=== PATIENT | male | born 1980 | race Caucasian/White ===

== ENCOUNTER 2024-05-24 10:28 | Outpatient (CLI) | payer BC, SELFPAY ==
--- NOTE | ~2024-05-24 | MR_ITS ---
MRI of the right ankle Clinical history: Pain Technique: Coronal proton-density and proton-density fat-sat images, axial proton-density and proton- density fat-sat images, and sagittal proton-density and proton-density fat-sat images were acquired. Findings: Syndesmotic ligaments are intact. Anterior and posterior talofibular ligaments, and calcane ofibular ligament are intact. Deltoid ligament is intact. Medial flexor tendons, peroneal tendons, anterior extensor tendons, and Achilles tendon are intact. T here is mild tenosynovitis of the tibialis posterior tendon sheath proximally. There is no osteochondral lesion of the talar dome. Bone marrow signals and joint spaces are intact. There is edema like signal in the sinus Tarsi. Plantar fascia intact. Impression: Edematous signal in the sinus Tarsi. Correlate for sinus Tarsi syndrome. Mild tenosynovitis of the proximal tibial is posterior tendon sheath. Reviewed, dictated and finalized at [facility]. Impression: Edematous signal in the sinus Tarsi. Correlate for sinus Tarsi syndrome. Mild tenosynovitis of the proximal tibial is posterior tendon sheath.
== END 2024-05-24 10:29 | disposition home or self-care (01) ==
PROVIDERS: PCP Family Medicine; Visit Provider Family Medicine Sports Medicine
DX: M65.861 Other synovitis and tenosynovitis, right lower leg (principal); M76.821 Posterior tibial tendinitis, right leg; M84.374A Stress fracture, right foot, initial encounter for fracture
CPT/HCPCS: 73721

== ENCOUNTER 2024-12-07 08:10 | Emergency (ER) | payer BC, SELFPAY ==
--- OUTSIDE RECORDS SUMMARY | 2024-12-07 08:13 | XMS_ITS | Clinical Summary ---
Author Organization [facility] Address [address] [place] [address] Phone Care Team Providers Care Telehealth Case Manager Name Role Phone Lukas Lucio MD Primary Care Provider [phone] [phone] Allergies No known active allergies Active Problems Problem Noted Date Diagnosed Date Anxious mood as adjustment reaction 10/28/2015 Social History Tobacco Use Types Packs/Day Years Used Date Smoking Tobacco: Former Smokeless Tobacco: Never Sexually Active Control Partners Comments Yes Oral Contraceptive Female Sex and Gender Information Value Date Recorded Sex Assigned at Not on file 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 Gender Identity Not on file Sexual Orientation Not on file Plan of Treatment Health Maintenance Due Date Last Done Comments Hepatitis C Virus (HCV) Screening 1979 TdaP Immunization 1979 Hepatitis B Immunization (3 of 3 - 19+ 3-dose series) 08/02/2000 02/29/2000, 02/01/2000 Influenza Immunization (#1) 04/21/202404/23, 05/01/2019, 06/03/2017 SARS-COV-2 Immunization ( season) 2024 09/01/2021, 11/07/2020, 10/10/2020 Colonoscopy 2024 Colorectal Cancer Screening 2024 Respiratory Syncytial Virus (RSV) Immunization (Adult) (1 - 1-dose 75+ series) 2054 Meningococcal Immunization (ACWY) Aged Out No longer eligible b ased on patient's age to complete this topic Pneumococcal Immunization Combined Aged Out No longer eligible b ased on patient's age to complete this topic Rotavirus Immunization Aged Out No lo nger eligible based on patient's age to complete this topic Insurance [facility] Care Teams Telehealth Case Manager Relationship Specialty Start Date End Date [place] [address] PCP - General Internal Medicine 10/16/15
--- OUTSIDE RECORDS SUMMARY | 2024-12-07 08:13 | XMS_ITS | Referral Summary ---
Author Organization [facility] [address] [facility] Address [address] [place] [address] Care Team Providers Care Job Service Specialist Name Role Phone Lukas Lucio MD Primary Care Provider [phone] Allergies No known active allergies Medications No known medications Active Problems Problem Noted Date Diagnosed Date Skin lesion 01/20/2022 Assessment & Plan (01/20/2022 4:39 PM CDT): Patient with atypical moles on trunk. 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 Patient reports scrotal skin lesion noted during vasectomy consultation. Recommended evaluation by dermatology, referral placed. Recommended cover sun exposed skin with SPF for prevention. Encounter for screening for lipid disorder 04/12 Assessment & Plan (04/12/2021 2:58 PM CDT): Reviewed previous labs. Will check labs today Secondary prevention Discussed focusing on limiting bad fats in the diet and using exercise as a way to improve cholesterol. Reviewed exercise recommendations Encounter for vasectomy counseling 04/12/2021 Assessment & Plan (04/12/2021 2:58 PM CDT): Given referral with urologist Dr. Ordonez. Annual physical exam 04/12/2021 Assessment & Plan (04/12/2021 2:57 PM CDT): Preventive exam; reviewed recommended preventive screenings and vaccinations. Encourage annual flu vaccine. Wear sunscreen/protective clothing when outdoors. Class 1 obesity due to exces s calories without serious comorbidity with body mass index (BMI) of 32.0 to 32.9 in adult 04/12/2021 Assessment & Plan (04/12/2021 2:58 PM CDT): Discussed healthy diet and importance of regular physical activity. Anxious mood as adjustment reaction 10/28/2015 Immunizations Immunization Administration Dates Next Due HPV, Unspecified 08/22/2016(Deferred: Patient Re fused) Hep B Vaccine 02/29/2000,02/01/2000 IPV 02/01/2000 Influenza, Quadrivalent, Spl it, Preservative Free, Intramuscular 05/20/2020,05/01/2019,04/30/2018 Influenza, Trivalent, IM (MDV) 06/03/2017 Influenza, Unspecified 04/08/2024(Deferr ed: Patient Refused),04/21/2023(Deferred: Patient Refused),05/21/2021,05/20/2020, 017,06/04/2017 Tdap 01/24/2018 Social History Tobacco Use Types Packs/Day Years Used Date Smoking Tobacco: Former Cigarettes Q uit: 10/19/2002 Smokeless Tobacco: Never Tobacco Cessation:Counseling Given: Not Answered Alcohol Use Standard Drinks/Week Comments Yes 0 (1 standard drink = 0.6 oz pur e alcohol) PHQ-2 Answer Date Recorded PHQ-2 Total Score (If total score is 3 or more points, staff should administer the PHQ-9) 0 04/08/2024 Personal Safety Answer Date Recorded Getting School Help Needed Not on file 08/27 Sex and Gender Information Value Date Recorded Sex Assigned at Not on file 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 Gender Identity Not on file Sexual Orientation Not on file Last Filed Vital Signs Vital Sign Reading Time Taken Comments Blood Pressure 121/75 05/14/2024 3:17 PM CDT Pulse 77 05/14/2024 3:17 PM CDT Temperature 36.7 C (98.1 F) 04/08/2024 3:45 PM CDT Respiratory Rate 16 04/08/2024 3:45 PM CDT Oxygen Saturation 98% 04/08/2024 3:45 PM CDT room air Inhaled Oxygen Concentration - - Weight 100.2 kg (220 lb 12.8 oz) 05/14/2024 3:17 PM CDT Height 190.5 cm (6' 3 ) 05/14/2024 3:17 PM CDT Body Mass Index 27.6 05/14/2024 3:17 PM CDT Plan of Treatment Not on file Insurance [employer] Care Teams Job Service Specialist Relationship Specialty Start Date End Date Lukas Lucio MD [address] [place] [address] PCP - General 05/11/15
--- OUTSIDE RECORDS SUMMARY | 2024-12-07 08:13 | XMS_ITS | Clinical Summary ---
Author Organization [facility] [address] [facility] Address [address] [place] [address] Care Team Providers Care Java Flex Developer Name Role Phone Lukas Lucio MD Primary Care Provider [phone] [phone] Allergies No known active allergies Medications No [...] Patient Refused),04/21/2023(Deferred: Patient Refused),05/21/2021,05/20/2020, 017,06/04/2017 Tdap 01/24/2018 Medical History Medical History Date Comments Hx Other Medical 1988 epilepsy; Comme nts: CLS 05/11/2015 - Anxiety 08/2019 Depression 08/2019 Seizures (HCC) 1990 Family History Medical History Relation Name Comments No Known Problems Brother No Known Problems Daughter Brenda Hypertension Father Kayla Hypertension; Memory loss Father Kayla Parkinsonism Father Kayla Parkinson's dis ease; Hypertension Mother Bethany Hypertension; Arthritis Other No Known Problems Son Devon Relation Name Status Comments Brother Alive Daughter Brenda Alive Father Kayla Alive Mother Bethany Alive Other Son Devon Alive Social History Tobacco Use Types Packs/Day Years [...] on file 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 Gender Identity Not on file Sexual Orientation Not on file Obstetrics History Last Filed Vital Signs Vital Sign Reading [...] 05/14/2024 3:17 PM CDT Plan of Treatment Health Maintenance Due Date Last Done Comments Colon Cancer Screening-Colonoscopy 1979 Hepatitis C Screening 1979 Covid-19 Vaccine ( season) 2024 11/07/2020, 10/10/2020 Depression Screening 04/08/2025 04/08/2024, 09/20/2022, 04/15/2022, Additional history exists Regular Well Visit/Exam 18-64 04/08/2025 04/08/2024, 04/15/2022, 04/12/2021, Additional history exists DTaP/Tdap/Td Vaccine (2 - Td or Tdap) 01/25/2028 01/24/2018 Hepatitis B Screening Completed 02/29/2000, 000 Influenza Vaccine Completed 06/05/2024, , 05/20/2020, Additional history exists HPV Vaccines Aged Out No longer eligi ble based on patient's age to complete this topic Pneumococcal vaccine <65 Aged Out No longer eligible based on patient's age to complete [place] [address] [place] [address] [employer] [facility] [employer] [facility] Care Teams Java Flex Developer Relationship Specialty Start Date End Date Lukas Lucio MD [address] [place] [address] PCP - General 05/11/15
[2024-12-07 08:16] VITALS: BP 133/86; PULSE 67; RESP 20; TEMP 36.4; O2SAT 100
--- NOTE | 2024-12-07 08:30 | ED.URI ---
HPI - URI/Sore Throat General Chief Complaint: Upper Respiratory Infection Stated Complaint: Sore Throat Time Seen by Provider: 12/07/24 08:28 Source: patient and RN notes reviewed Mode of arrival: ambulatory Limitations: no limitations History of Present Illness HPI Narrative: 44-year-old male presents with concern for sore throat that started yesterday. Reports his son has strep strep throat. He denies fever, body aches, chills, sweats. Denies runny nose, stuffy nose, cough, headache, stomach ache, rash. MD elicited complaint: sore throat Related Data Allergies Allergy/AdvReac Type Severity Reaction Status Date / Time No Known Allergies Allergy Unverified 04/30/12 16:31 Review of Systems Review of Systems: CONSTITUTIONAL: Denies malaise, chills, sweats, or fever. EYES: Denies visual changes, redness, or discharge. ENT: Denies rhinorrhea, congestion, sinus pain, otalgia. Reports sore throat. CARDIOVASCULAR: Denies chest pain, palpitations, or edema. RESPIRATORY: Reports cough. Denies dyspnea. GASTROINTESTINAL: Denies abdominal pain, nausea, vomiting, diarrhea SKIN: Denies rash or itching. MUSCULOSKELETAL: Denies myalgia. NEUROLOGIC: Denies headache. All systems reviewed & are unremarkable except as noted in HPI and below PMFSH Comments At time of signature, agree with nursing past medical, surgical, social and family history. There is no relevant family history pertinent to the presenting complaint Exam Narrative: GENERAL: Well-appearing, well-nourished, and in no acute distress. HEAD: Normocephalic EYES: PERRLA, conjunctivae clear ENT: Nares clear, turbinates edematous and erythematous. Mucous membranes moist. TM pearly ivan with sharp light reflex bilaterally; no tragal tenderness. Oropharynx not erythematous without lesions. Tonsils not enlarged and without exudate, no drooling, no hoarseness, no trismus, uvula midline. NECK: Supple. No lymphadenopathy CHEST: Clear to auscultation, breath sounds equal. No wheezing, rhonchi, rales, or stridor. No respiratory distress, speaks in full sentences. HEART: Regular rate and rhythm. No murmur heard. SKIN: Warm, dry, no rash. NEURO: Alert and oriented x3. PSYCH: Normal mood and affect Course Course Emergency Course: Patient is aware of diagnosis, understands and agrees to treatment plan. Anticipatory guidance given. Patient agrees to follow-up as directed and is aware of reasons to seek care at the emergency department. Portions of this record may have been created with voice recognition software Level of Care: Express Care Visit Vital Signs Vital signs: Vital Signs Temperature 97.5 F L 12/07/24 08:16 Pulse Rate 67 12/07/24 08:16 Respiratory Rate 20 12/07/24 08:16 Blood Pressure 133/86 12/07/24 08:16 Pulse Oximetry 100 12/07/24 08:16 Oxygen Delivery Room Air 12/07/24 08:16 Temperature 97.5 F L 12/07/24 08:16 Pulse Rate 67 12/07/24 08:16 Respiratory Rate 20 12/07/24 08:16 Blood Pressure 133/86 12/07/24 08:16 Pulse Oximetry 100 12/07/24 08:16 Oxygen Delivery Room Air 12/07/24 08:16 Reviewed. MDM - URI/Sore Throat MDM Narrative Medical decision making narrative: Differential diagnosis considered: Carey virus, strep pharyngitis, allergic rhinitis, upper respiratory tract infection, sinusitis, rhinosinusitis, nasopharyngitis. viral pharyngitis, otitis media, otitis externa, pneumonia, bronchitis, viral cough syndrome, viral syndrome, and influenza. Exam findings show no acute concerns or changes; patient is non-toxic appearing and is in no distress. Patient is appropriate for outpatient treatment and follow-up. Lab Data Attestation: I reviewed the patient's lab results. Critical Care Time Critical Care Time Critical Care Time: No Discharge Plan Discharge Clinical Impression: Pharyngitis Patient Disposition: Home Condition: Stable Instructions: Pharyngitis (ED) Additional Instructions: Your rapid strep swab was negative today at [facility]. A throat culture will be sent to the laboratory for further testing. If the test is positive, you will receive a phone call within 48 hours and an appropriate antibiotic will be initiated at that time. Your symptoms are likely due to a viral illness, which is not treated with antibiotics. Viral symptoms can be present for up to a few weeks. -Alternate Tylenol and Motrin per package directions for fever or pain. -Antihistamine medication such as Benadryl at night and Zyrtec during the day can help improve symptoms. -Eat and drink things that are easy to swallow, like tea or soup, or popsicles to suck on. -Oral rinses such as: Salt water gargles and/or may use topical anesthetic (eg. Chloraseptic spray) or lozenges to relieve dryness or throat pain). -Frequent hand washing or hand construction controller is one of the best ways to prevent spread of infection. -Follow up with primary care provider in 2-3 days if condition is not improving; or seek ER visit if you have trouble breathing, cannot drink enough fluids, have muffled voice, difficulty opening your mouth, or severe swelling. Patient Language: Estonian Follow-up/Referrals: Khadijah,Lukas Mckinney M.D. [Primary Care Provider] - Time of Disposition: 08:41
[2024-12-07 08:35] LABS: EDSTREPNEGPOS1 Negative (Negative)
== END 2024-12-07 08:46 | disposition home or self-care (01) ==
PROVIDERS: Emergency Provider Nurse Practitioner; PCP Family Medicine
DX: J02.9 Acute pharyngitis, unspecified (principal)
CPT/HCPCS: 87081; 87880; 99213; G0463